=== PATIENT | female | born 1970 | race Caucasian/White ===

== ENCOUNTER 2018-10-25 11:49 | Emergency (ER) | payer OTHER ==
[~2018-10-25] VITALS: Ht 167.6 cm; Wt 90.7 kg
--- OUTSIDE RECORDS SUMMARY | 2018-10-25 11:53 | XMS REPORT | Encounter Summary ---
Author Organization Unknown Address [address] [place] [address] Phone [phone] Reason for Visit Medical Complaint Instructions None recorded. Discussion Note: None recorded. Patient educational handouts: No information available. Plan of Care Reminders Provider Appointments None recorded. Lab None recorded. Referral None recorded. Procedures None recorded. Surgeries None recorded. Imaging None recorded. Medications Name Start Date Bromfed DM 2 mg-30 mg-10 mg/5 mL syrup Take 10 mL every 6 hours by oral route as needed for cough. cephalexin 500 mg capsule TK 1 C PO BID FOR 10 DAYS citalopram 20 mg tablet TK 1 T PO QD methocarbamol 750 mg tablet TK 1 T PO TID PRF SPASMS phentermine 37.5 mg tablet TK 1 T PO QD prednisone 10 mg tablet TK 1 T PO TID tramadol 50 mg tablet TK ONE TO TWO TS PO Q 4 TO 6 H PRN P Zithromax Z-Cuco 250 mg tablet Take 2 pills the first day then 1 pill for the next 4 days. Medications Administered None recorded. Vitals None recorded. Lab Results None recorded. Allergies None recorded. Problems Name Status Onset Date Source Otitis Media Active Encounter Acute Upper Respiratory Infection Active Encounter Acute Bronchitis Active Encounter Procedures Date Name Performed by 11/15/2014 Hysterectomy Information not available Vaccine List None recorded. Social History Smoking Status Never Smoker Past Encounters 01/12/2016 [facility] Jean Baptiste: [address] [place] [address], Ph. History of Present Illness None recorded. Review of Systems Reported By: Patient Physical Exam None recorded.
--- OUTSIDE RECORDS SUMMARY | 2018-10-25 11:53 | XMS REPORT | Encounter Summary ---
Author Organization Unknown Address [address] [place] [address] Phone [phone] Care Team Providers Care Charge Hand Name Role Phone Chemo Fam MD 3 [phone] Reason for Visit Immunization Instructions 1. Immunization Adacel (Tdap Adolesn/Adult)(PF)2Lf-(2.5-5-3-5mcg)-5 Lf/0.5 mL IM susp 2. Counseling 3. Body mass index 30+ - obesity body mass index: care instructions Discussion Note Pt is in NAD; Verbalizes understanding of all instructions with no questions at this time. Plan of Care Patient Instructions Td Booster every 10 years after first Tdap vaccine. Refer to your VIS handout as discussed in clinic today regarding your care after administration. Follow up with your PCP as needed. In case of emergecy call 911 or go to nearest ER. Recommend follow a low sodium/fat/carb diet and exercise 30-45 mins/d 3-4 days a week once symptoms resolve. Reminders Provider Appointments None recorded. Lab None recorded. Referral None recorded. Procedures None recorded. Surgeries None recorded. Imaging None recorded. Medications No Medications Reported Medications Administered None recorded. Vitals Height Weight BMI Blood Pressure 5 ft 6 in 200 lbs 32.3 kg/m2 Lab Results None recorded. Allergies Code Code System Name Reaction Severity Status Onset NKDA Problems Name Status Onset Date Source Body Mass Index 30+ - Obesity Active 09/16/2017 Elevated Blood-pressure Reading without Diagnosis of Hypertension Active 09/16/2017 Immunization Active 12/03/2017 Counseling Active 12/03/2017 Procedures Date Name Performed by 11/15/2014 Hysterectomy Information not available Vaccine List Vaccine Type influenza, unspecified formulation 08/15/2016 Tdap 12/03/20170.5 mL Social History Smoking Status Never Smoker Past Encounters 12/03/2017 Immunization; Counseling; Body Mass Index 30+ - Obesity [facility]: [address] [place] [address], Ph. History of Present Illness Immunization Reported By: Patient HPI: Immunization Request (normal) no symptoms. Immunization eligibility questions No vaccines in last month, No reaction to previous vaccines:, No Known Allergies Review of Systems Basic Reported By: Patient Constitutional: Constitutional: no fever Eyes: Eyes: no eye complaints Vmlo-Cjfi-Kxxpr-Throat: Ears: no ear complaints. Nose: no nose/sinus problems. Mouth/Throat: no sore throat, no bleeding gums, no mouth complaints, no teeth problems Cardiovascular: Cardiovascular: no chest pain, no shortness of breath, no known heart murmur Respiratory: Respiratory: no cough, no wheezing, no shortness of breath Gastrointestinal: Gastrointestinal: no abdominal pain, no vomiting / diarrhea Genitourinary: Genitourinary: no urinary complaints, no discharge Musculoskeletal: Musculoskeletal: no muscle aches, no muscle weakness, no arthralgias/joint pain, no back pain Skin: Skin: no abnormal / changing mole, no jaundice, no rashes Neurologic: Neurologic: no loss of consciousness, no weakness, no numbness, no seizures, no dizziness, no headaches Physical Exam Immunization Reported By: Patient General Appearance: General: well-developed, well-nourished, no acute distress
--- OUTSIDE RECORDS SUMMARY | 2018-10-25 11:53 | XMS REPORT | Continuity of Care Document ---
Author Author [facility] Interface Address Unknown Phone Unavailable Problems Problem Status Onset Date Classification Date Reported Comments Source Body mass index 30+ - obesity 03/12/2018 Diagnosis 03/12/2018 [facility] Elevated blood-pressure reading without diagnosis of hypertension 03/12/2018 Diagnosis 03/12/2018 [facility] Allergic rhinitis due to pollen 03/12/2018 Diagnosis 03/12/2018 [facility] Acute pharyngitis 03/12/2018 Diagnosis 03/12/2018 [facility] Viral upper respiratory tract infection 03/12/2018 Diagnosis 03/12/2018 [facility] Immunization 12/03/2017 Problem 03/12/2018 [facility] Counseling 12/03/2017 Problem 03/12/2018 [facility] Viral Upper Respiratory Tract Infection 10/05/2017 Problem 10/05/2017 [facility] Backache 09/16/2017 Diagnosis 10/05/2017 [facility] Body Mass Index 30+ - Obesity 09/16/2017 Problem 03/12/2018 [facility] Elevated Blood-pressure Reading without Diagnosis of Hypertension 09/16/2017 Problem 03/12/2018 [facility] Acute bronchitis 10/13/2015 Diagnosis 10/13/2015 [facility] Otitis Media Problem 01/12/2016 [facility] Acute Upper Respiratory Infection Problem 01/12/2016 [facility] Acute Bronchitis Problem 01/12/2016 [facility] Medications Medication Details Route Status Patient Instructions Ordering Provider Order Date Source Brompheniramine Maleate 0.4 MG/ML / Dextromethorphan Hydrobromide 2 MG/ML / Pseudoephedrine Hydrochloride 6 MG/ML Oral Solution [Bromfed DM] Bromfed DM 2 mg-30 mg-10 mg/5 mL syrup Take 10 mL every 6 hours by oral route as needed for cough. Active [facility] Azithromycin 250 MG Oral Tablet Zithromax Z-Cuco 250 mg tablet Take 2 pills the first day then 1 pill for the next 4 days. Active [facility] benzonatate 200 MG Oral Capsule benzonatate 200 mg capsule Take 1 capsule 3 times a day by oral route as needed for 10 days. Active [facility] Prednisone 20 MG Oral Tablet prednisone 20 mg tablet Take 3 tablets twice a day by oral route as directed for 5 days. Active [facility] 200 ACTUAT Albuterol 0.09 MG/ACTUAT Metered Dose Inhaler [ProAir] ProAir HFA 90 mcg/actuation aerosol inhaler Inhale 2 puffs every 4-6 hours by inhalation route as needed. Active [facility] Cephalexin 500 MG Oral Capsule cephalexin 500 mg capsule TK 1 C PO BID FOR 10 DAYS Active [facility] Citalopram 20 MG Oral Tablet citalopram 20 mg tablet TK 1 T PO QD Active [facility] Methocarbamol 750 MG Oral Tablet methocarbamol 750 mg tablet TK 1 T PO TID PRF SPASMS Active [facility] Phentermine Hydrochloride 37.5 MG Oral Tablet phentermine 37.5 mg tablet TK 1 T PO QD Active [facility] Prednisone 10 MG Oral Tablet prednisone 10 mg tablet Take 1 tablet twice a day by oral route for 5 days. Active [facility] tramadol hydrochloride 50 MG Oral Tablet tramadol 50 mg tablet TK ONE TO TWO TS PO Q 4 TO 6 H PRN P Active [facility] No Medications Reported No Medications Reported Active [facility] Cyclobenzaprine hydrochloride 10 MG Oral Tablet cyclobenzaprine 10 mg tablet Take 1 tablet 3 times a day by oral route as needed for 7 days. Active [facility] Ibuprofen 800 MG Oral Tablet ibuprofen 800 mg tablet Take 1 tablet 3 times a day by oral route as needed for 7 days. Take with food. Active [facility] Allergies, Adverse Reactions, Alerts Substance Category Reaction Severity Reaction type Status Date Reported Comments Source Immunizations Immunization Date Given Site Status Last Updated Comments Source Tdap 12/03/2017 completed [facility] influenza, unspecified formulation 08/15/2016 completed [facility] Tdap 06/17/2009 completed [facility] Results Order Name Results Value Reference Range Date Interpretation Comments Source RESULT negative 03/12/2018 [facility] SWAB LOCATION Left and Right tonsillar pillars 03/12/2018 [facility] Influenza A negative 03/12/2018 [facility] Influenza B negative 03/12/2018 [facility] Influenza A negative 10/13/2015 [facility] Influenza B negative 10/13/2015 [facility] Vital Signs Vital Sign Value Date Comments Source Diastolic (mm Hg) 90 03/12/2018 [facility] Height 66 03/12/2018 [facility] Systolic (mm Hg) 130 03/12/2018 [facility] Weight 220 03/12/2018 [facility] Height 66 12/03/2017 [facility] Weight 200 12/03/2017 [facility] Diastolic (mm Hg) 80 10/05/2017 [facility] Height 66 10/05/2017 [facility] Systolic (mm Hg) 120 10/05/2017 [facility] Weight 200 10/05/2017 [facility] Diastolic (mm Hg) 80 09/16/2017 [facility] Height 66 09/16/2017 [facility] Systolic (mm Hg) 125 09/16/2017 [facility] Weight 200 09/16/2017 [facility] Diastolic (mm Hg) 86 10/13/2015 [facility] Height 66 10/13/2015 [facility] Systolic (mm Hg) 122 10/13/2015 [facility] Weight 200 10/13/2015 [facility] Encounters Location Location Details Encounter Type Encounter Number Reason For Visit Attending Provider ADM Date DC Date Status Source [place] - [facility] - [id number] IlaDEION BriceP: [address] [facility] [place] [address], Ph. [id number] Ila Mir 10/13/2015 [facility] [place] [facility] - [id number] Manju Clarke, CAGE CASHIER: [address] [facility] [place] [address], Ph. [id number] Ila Mir 01/12/2016 [facility] [place] [facility] - [id number] Shae Briggs, [employer]AGE C[employer]IER-C: [address], [place] [address], Ph. [id number] Shae Briggs 09/16/2017 [facility] [place] [facility] - [id number] JamilP-C: [address] [facility] [place] [address], Ph. [id number] Shae Curranroy 09/16/2017 [facility] [place] - [facility] - [id number] Briggs, CAGE CASHIER-C: [address] [place] [address], Ph. [id number] Shae Curranroy 10/05/2017 [facility] [place] - [facility] - [id number] Angela Monroy, CAGE CASHIER-C: [address] [place] [address], Ph. [id number] Shae Curranroy 12/03/2017 [facility] [place] [facility] - [id number] Kosisomarcelle Alimole, CAGE CASHIER: [address] [place] [address], Ph. [id number] Kosisochi Alimole 03/12/2018 [facility] Procedures Procedure Code Date Perfomer Comments Source Hysterectomy 11/15/2014 [facility]
--- OUTSIDE RECORDS SUMMARY | 2018-10-25 11:53 | XMS REPORT | Encounter Summary ---
Author Organization Unknown Address [address] [place] [address] Phone [phone] Care Team Providers Care Orthopedic Nurse Practitioner Name Role Phone Chemo Fam MD 3 [phone] Reason for Visit Left Medical Complaint Instructions 1. Backache back pain: care instructions cyclobenzaprine 10 mg tablet ibuprofen 800 mg tablet 2. Elevated blood-pressure reading without diagnosis of hypertension 3. Body mass index 30+ - obesity Discussion Note Pt is in NAD; Verbalizes understanding of all instructions with no questions at this time. Plan of Care Patient Instructions Rest, alternate with ice and heat. Recommend take ibuprofen and cyclobenzaprine as directed. Do no operate any machinery or drive while taking these medications. Recommend avoid extreneous exercise, avoid heavy lifting. Activity as tolerated. If worsening of symptoms follow up with PCP. In case of emergency call 911 or go to nearest ER. Recommend follow a low sodium/fat/carb diet and exercise 30-45 mins/d 3-4 days a week once symptoms resolve. Recommend monitor BP at home and document, bring BP log to PCP for review. Recommend follow a low sodium/fat/carb diet and exercise 30-45 mins/d 3-4 days a week once symptoms resolve. Reminders Provider Appointments None recorded. Lab None recorded. Referral None recorded. Procedures None recorded. Surgeries None recorded. Imaging None recorded. Medications Name Start Date cyclobenzaprine 10 mg tablet Take 1 tablet 3 times a day by oral route as needed for 7 days. ibuprofen 800 mg tablet Take 1 tablet 3 times a day by oral route as needed for 7 days. Take with food. methocarbamol 750 mg tablet TK 1 T PO TID PRF SPASMS Medications Administered None recorded. Vitals Height Weight BMI Blood Pressure 5 ft 6 in 200 lbs 32.3 kg/m2 (1) 138/92 mm[Hg] (2) 125/80 mm[Hg] Lab Results None recorded. Allergies Code Code System Name Reaction Severity Status Onset NKDA Problems Name Status Onset Date Source Body Mass Index 30+ - Obesity Active 09/16/2017 Backache Active 09/16/2017 Elevated Blood-pressure Reading without Diagnosis of Hypertension Active 09/16/2017 Procedures Date Name Performed by 11/15/2014 Hysterectomy Information not available Vaccine List Vaccine Type influenza, unspecified formulation 08/15/2016 Tdap 06/17/2009 Social History Smoking Status Never Smoker Past Encounters 09/16/2017 Backache; Elevated Blood-pressure Reading without Diagnosis of Hypertension; Body Mass Index 30+ - Obesity Shae Briggs, [facility]: [address] [place] [address], Ph. History of Present Illness Musculoskeletal Complaint Reported By: Patient HPI: Location: Location:. Quality: sharp, deep, constant. Severity: moderate (5- 7), same, pain level 7/10. Duration: intermittent. Onset/Timing: acute, gradual. Context: unusual activity; after lifting a table. Alleviating factors: NSAIDS. Aggravating factors: lifting, pushing/pulling, computer use, movement/positioning. Associated Symptoms: no fever/chills, no warmth, no redness, no swelling, no drainage, no ecchymosis, no weakness, no tingling, no numbness, no radiation, no catching/locking, no popping/clicking, no buckling, no grinding, no instability, no weight loss, no change in bowel/bladder habits, no muscle aches, no headache Review of Systems:ROS as noted in the HPI Review of Systems Basic Reported By: Patient Physical Exam Adult Basic, Adult Female Complete, Expanded Musculoskeletal Exam 1 Reported By: Patient Constitutional: General Appearance: obese. Level of Distress: NAD. Ambulation: ambulating normally Psychiatric: Mental Status: active and alert. Orientation: to time, to place, to person Lungs: Respiratory effort: no dyspnea, no tachypnea, no use of accessory muscles, no intercostal retractions. Auscultation: breath sounds normal Cardiovascular: Heart Auscultation: RRR, no murmurs Musculoskeletal:: Motor Strength and Tone: normal motor strength, normal tone. Joints, Bones, and Muscles: no bony abnormalities, no contractures, no malalignment, limited ROM, tenderness. Extremities: no cyanosis, no edema, no varicosities, no palpable cord. Cervical Spine Motion: normal, flexion normal, extension normal, lateral flexion right normal, lateral flexion left normal, rotation right normal, rotation left normal. Shoulder Motion Right: normal, forward elevation normal, abduction normal, adduction normal, external rotation normal, internal rotation normal. Shoulder Motion Left: normal, forward elevation normal, abduction normal, adduction normal, external rotation normal, internal rotation normal. Elbow Motion Right: normal, flexion normal, extension normal, supination normal, pronation normal. Elbow Motion Left: normal, flexion normal, extension normal, supination normal, pronation normal. Wrist Motion Right: normal, dorsiflexion normal, palmar flexion normal, radial flexion normal, ulnar flexion normal. Wrist Motion Left: normal, dorsiflexion normal, palmar flexion normal, radial flexion normal, ulnar flexion normal. Finger/Thumb Motion Right: normal, proximal flexion normal, distal flexion normal, proximal extension normal, distal extension normal. Finger/Thumb Motion Left: normal, proximal flexion normal, distal flexion normal, proximal extension normal, distal extension normal Neurologic: Gait and Station: normal gait, normal station. Cranial Nerves: grossly intact. Sensation: grossly intact. Reflexes: DTRs 2+ bilaterally throughout Back: Thoracolumbar Appearance: normal curvature
--- OUTSIDE RECORDS SUMMARY | 2018-10-25 11:53 | XMS REPORT | Encounter Summary ---
Author Organization Unknown Address [address] [place] [address] Phone [phone] Reason for Visit Medical Complaint; body aches, chest congestion, headache, cough x3 to 4 days. Instructions 1. Acute bronchitis rapid flu (A+B) Zithromax Z-Cuco 250 mg tablet Bromfed DM 2 mg-30 mg-10 mg/5 mL syrup bronchitis: care instructions Discussion Note: None recorded. Plan of Care Patient Instructions Please complete antibiotic course even after symptoms resolve.Please f/u with PCP in 1 week or seek care immediatelyif you are short of breath, have trouble breathing, or can't catch breath. Reminders Provider Appointments None recorded. Lab Rapid Flu (A+B) 10/13/2015 [facility] Referral None recorded. Procedures None recorded. Surgeries None recorded. Imaging None recorded. Medications Name Start Date Bromfed DM 2 mg-30 mg-10 mg/5 mL syrup Take 10 mL every 6 hours by oral route as needed for cough. Zithromax Z-Cuco 250 mg tablet Take 2 pills the first day then 1 pill for the next 4 days. Medications Administered None recorded. Vitals Height Weight BMI Blood Pressure 5 ft 6 in 200 lbs 32.3 122/86 Lab Results Date Name Result Description Value Range Status Rapid Flu (A+B) Influenza a negative Influenza B negative Allergies Name Reaction Severity Onset NKDA Problems Name Status Onset Date Source Otitis Media Active Encounter Acute Upper Respiratory Infection Active Encounter Acute Bronchitis Active Encounter Procedures Date Name Performed by 11/15/2014 Hysterectomy Information not available Vaccine List None recorded. Social History Smoking Status Never Smoker Past Encounters 10/13/2015 Acute Bronchitis [facility] Baptiste: [address] [place] [address], Ph. History of Present Illness Clcly-Vacltqejnc-Dvtqolu Reported By: Patient HPI: Location: throat, chest. Quality: productive cough, sore throat, colored phlegm. Duration: 4days. Severity: moderate. Onset/Timing: gradual. Modifying factors: OTC medication Review of Systems Basic Reported By: Patient Constitutional: Constitutional: no fever Eyes: Eyes: no eye complaints Ohrw-Lmly-Jmqzd-Throat: Ears: no ear complaints. Nose: nose/sinus problems. Mouth/Throat: no bleeding gums, no mouth complaints, no teeth problems, sore throat Cardiovascular: Cardiovascular: no chest pain, no shortness of breath, no known heart murmur Respiratory: Respiratory: no wheezing, no shortness of breath, cough Gastrointestinal: Gastrointestinal: no abdominal pain, no vomiting / diarrhea Genitourinary: Genitourinary: no urinary complaints, no discharge Musculoskeletal: Musculoskeletal: no muscle weakness, no arthralgias/joint pain, no back pain, muscle aches Skin: Skin: no abnormal / changing mole, no jaundice, no rashes Neurologic: Neurologic: no loss of consciousness, no weakness, no numbness, no seizures, no dizziness, no headaches Physical Exam Adult Female Complete, Adult Basic Constitutional: General Appearance: healthy-appearing, well-nourished, well-developed. Level of Distress: NAD. Ambulation: ambulating normally Psychiatric: Mental Status: active and alert. Orientation: to time, to place, to person Eyes: Lids and Conjunctivae: non-injected, no discharge, no pallor. Pupils: PERRLA. EOM: EOMI. Sclerae: non-icteric Tth-Tyqy-Eqekb-Throat: Ears: no lesions on external ear, no outer ear tenderness, EACs clear, TMs clear. Hearing: no hearing loss. Nose: no lesions on external nose, nares patent, no septal deviation, nasal passages clear, no sinus tenderness, nasal discharge, post nasal drip. Lips, Teeth, and Gums: no mouth or lip ulcers, no bleeding gums, normal dentition. Oropharynx: moist mucous membranes, no exudates, tonsils not enlarged, erythema Neck: Neck: supple. Lymph Nodes: no cervical LAD, no supraclavicular LAD Lungs: Respiratory effort: no dyspnea, no tachypnea. Percussion: no dullness, flatness, or hyperresonance. Auscultation: rhonchi Cardiovascular: Heart Auscultation: RRR, no murmurs Neurologic: Gait and Station: normal gait Skin: Inspection and palpation: no rash
--- OUTSIDE RECORDS SUMMARY | 2018-10-25 11:53 | XMS REPORT | Encounter Summary ---
Author Organization Unknown Address [address] [place] [address] Phone [phone] Care Team Providers Care Clerk Television Production Name Role Phone Chemo Fam MD 3 [phone] Reason for Visit Medical Complaint Instructions 1. Viral upper respiratory tract infection benzonatate 200 mg capsule ProAir HFA 90 mcg/actuation aerosol inhaler prednisone 20 mg tablet 2. Elevated blood-pressure reading without diagnosis of hypertension 3. Body mass index 30+ - obesity body mass index: care instructions Discussion Note Pt is in NAD; Verbalizes understanding of all instructions with no questions at this time. Plan of Care Patient Instructions Start Benzaontate for cough. Start ProAir Inhalers 2 puffs every 4-6 hrs as needed for shortness of breath/wheezing. Take Steroids as directed and with food to avoid GI discomfort. Take medications as prescribed and follow up with a PCP within 2-3 if symptoms worsen as discussed. In case of emergency call 911 or go to nearest ER. Recommend monitor BP at home and document, bring BP log to PCP for review. Recommend follow a low sodium/fat/carb diet and exercise 30-45 mins/d 3-4 days a week once symptoms resolve. Reminders Provider Appointments None recorded. Lab None recorded. Referral None recorded. Procedures None recorded. Surgeries None recorded. Imaging None recorded. Medications Name Start Date benzonatate 200 mg capsule Take 1 capsule 3 times a day by oral route as needed for 10 days. prednisone 20 mg tablet Take 3 tablets twice a day by oral route as directed for 5 days. ProAir HFA 90 mcg/actuation aerosol inhaler Inhale 2 puffs every 4-6 hours by inhalation route as needed. Medications Administered None recorded. Vitals Height Weight BMI Blood Pressure 5 ft 6 in 200 lbs 32.3 kg/m2 120/80 mm[Hg] Lab Results None recorded. Allergies Code Code System Name Reaction Severity Status Onset NKDA Problems Name Status Onset Date Source Body Mass Index 30+ - Obesity Active 09/16/2017 Elevated Blood-pressure Reading without Diagnosis of Hypertension Active 09/16/2017 Viral Upper Respiratory Tract Infection Active 10/05/2017 Procedures Date Name Performed by 11/15/2014 Hysterectomy Information not available Vaccine List Vaccine Type influenza, unspecified formulation 08/15/2016 Tdap 06/17/2009 Social History Smoking Status Never Smoker Past Encounters 10/05/2017 Viral Upper Respiratory Tract Infection; Elevated Blood-pressure Reading without Diagnosis of Hypertension; Body Mass Index 30+ - Obesity ShaeHINA Kay-C: [address] [place] [address], Ph. 09/16/2017 Backache; Elevated Blood-pressure Reading without Diagnosis of Hypertension; Body Mass Index 30+ - Obesity LEONCIO GarciaC: [address] [place] [address], Ph. History of Present Illness Tbmpast-Xwehv-Syr Reported By: Patient HPI: Quality: symptoms worse during the day. Duration: 1 days. Context: no ill contacts, no tick/insect bites, no recent travel, no new medications. Associated Symptoms: no fever/chills, no headache, no muscle aches, no rash, no lethargy, cough, nasal passage blockage (stuffiness); moderate chest congestion. Modifying Factors nothing gives relief Review of Systems Basic Reported By: Patient Constitutional: Constitutional: no fever Eyes: Eyes: no eye complaints Tdef-Qhhm-Dbjzk-Throat: Ears: no ear complaints. Nose: nose/sinus problems. Mouth/Throat: no sore throat, no bleeding gums, no mouth complaints, no teeth problems Cardiovascular: Cardiovascular: no chest pain, no shortness of breath, no known heart murmur Respiratory: Respiratory: no wheezing, no shortness of breath, cough; moderate chest congestion Gastrointestinal: Gastrointestinal: no abdominal pain, no vomiting / diarrhea Genitourinary: Genitourinary: no urinary complaints, no discharge Musculoskeletal: Musculoskeletal: no muscle aches, no muscle weakness, no arthralgias/joint pain, no back pain Skin: Skin: no abnormal / changing mole, no jaundice, no rashes Neurologic: Neurologic: no loss of consciousness, no weakness, no numbness, no seizures, no dizziness, no headaches Physical Exam Adult Basic, Adult Female Complete Reported By: Patient Constitutional: General Appearance: obese. Level of Distress: NAD. Ambulation: ambulating normally Psychiatric: Mental Status: active and alert. Orientation: to time, to place, to person Jlv-Yxlr-Fnbbm-Throat: Ears: no lesions on external ear, no outer ear tenderness, EACs clear, TMs clear. Hearing: no hearing loss. Nose: no lesions on external nose, nares patent, no septal deviation, nasal passages clear, no sinus tenderness, nasal discharge--rhinorrhea, post nasal drip. Lips, Teeth, and Gums: no mouth or lip ulcers, no bleeding gums, normal dentition. Oropharynx: moist mucous membranes, no erythema, no exudates, tonsils not enlarged Neck: Lymph Nodes: no cervical LAD Lungs: Respiratory effort: no dyspnea, no tachypnea, no use of accessory muscles, no intercostal retractions. Auscultation: breath sounds normal Cardiovascular: Heart Auscultation: RRR, no murmurs Neurologic: Gait and Station: normal gait, normal station
--- OUTSIDE RECORDS SUMMARY | 2018-10-25 11:53 | XMS REPORT ---
Author Author [facility] Address Unknown Phone Unavailable Care Team Providers Care Primary Therapist Name Role Phone Unavailable Unavailable Problems This patient has no known problems. Allergies, Adverse Reactions, Alerts This patient has no known allergies or adverse reactions. Medications This patient has no known medications. Results Test Description Test Time Test Comments Text Results Atomic Results Result Comments SCR MAMM BILATERAL LICO CAD DIGITAL 2018-09-05 13:39:12 - SCR MAMM BILATERAL LICO CAD DIGITALBILATERAL DIGITAL SCREENING MAMMOGRAM 3D/2D WITH CAD: 09/05/2018CLINICAL: Asymptomatic. Digital breast tomosynthesis was performed in addition to routine CC and MLO views. Current mammographic images were evaluated by either a Twenty Jeans M-Vu or a 36Kr ImageChecker CAD (computer aided detection system). Comparison is made to exams dated 07/23/2014 mammogram and mammogram - [facility]-. There are scattered fibroglandular tissues in both breasts. No suspicious mass, architectural distortion, malignant type calcification, or lymph node abnormality detected. Breast architecture is stable compared to prior exams.IMPRESSION: NEGATIVEThere is no mammographic evidence of malignancy. Resume annual screening mammography in one year. Saleem Phillips M.D. qsarah/penrad:09/05/2018 13:39:12 Wood Filler: Tere DE SANTIAGO, [facility]-FWletter sent: BIRADS 1-2 Normal Mammogram BI-RADS: 1 Negative
--- OUTSIDE RECORDS SUMMARY | 2018-10-25 11:53 | XMS REPORT | Encounter Summary ---
Author Organization Unknown Address [address] [place] [id number] Phone [phone] Care Team Providers Care Rice Farmer Name Role Phone Chemo Fam MD 3 [phone] Reason for Visit Medical Complaint Instructions 1. Viral upper respiratory tract infection prednisone 10 mg tablet rapid flu (A+B) viral respiratory infection: care instructions 2. Acute pharyngitis rapid strep group A, throat sore throat: care instructions 3. Allergic rhinitis due to pollen 4. Elevated blood-pressure reading without diagnosis of hypertension elevated blood pressure: care instructions 5. Body mass index 30+ - obesity eating healthy foods: care instructions Discussion Note I provided /reviewed healthwise handout Plan of Care Patient Instructions Take prescription as prescribed and f/u with PCP if symptoms persist or worsens within 5-7 days. Reminders Provider Appointments None recorded. Lab Rapid Flu (A+B) 03/12/2018 [facility] Rapid Strep Group a, Throat 03/12/2018 [facility] Referral None recorded. Procedures None recorded. Surgeries None recorded. Imaging None recorded. Medications Name Start Date prednisone 10 mg tablet Take 1 tablet twice a day by oral route for 5 days. Medications Administered None recorded. Vitals Height Weight BMI Blood Pressure 5 ft 6 in 220 lbs 35.5 kg/m2 (1) 130/90 mm[Hg] (2) 130/90 mm[Hg] Lab Results Date Name Specimen Result Interpretation Description Value Range Status Address Rapid Strep Group a, Throat Result negative [facility]: [address] [place] [address] Swab Location Left and Right tonsillar pillars [facility]: [address] [place] [address] Rapid Flu (A+B) Influenza a negative [facility]: [address] [place] [address] Influenza B negative [facility]: [address] [place] [address] Allergies Code Code System Name Reaction Severity [...] History Smoking Status Never Smoker Past Encounters 03/12/2018 Viral Upper Respiratory Tract Infection; Acute Pharyngitis; Allergic Rhinitis Due to Pollen; Elevated Blood-pressure Reading without Diagnosis of Hypertension; Body Mass Index 30+ - Obesity Ankur Watkins, [employer]ORE [employer]GER: [address] [place] [address], Ph. History of Present Illness Ahemm-Ououercrtw-Zxegjvs Reported By: Patient HPI: Location: head/sinuses. Quality: colored phlegm, nasal/sinus congestion, hacking cough. Duration: 2days. Severity: mild. Onset/Timing: sudden. Context: no foreign travel, non-smoker, sick contact, allergies. Modifying factors: OTC medication. Associated Symptoms: no sputum production, no shortness of breath, no wheezing, no change in number of pillows needed to sleep at night, no sweats, no significant weight gain, no significant weight loss, no diarrhea, no rash, no nausea, no fever, no muscle aches, no headache, morning cough, vomiting; Body aches Review of Systems Basic Reported By: Patient Physical Exam Adult Basic, Adult Female Complete Reported By: Patient Constitutional: General Appearance: healthy-appearing, well-nourished, well-developed. Level of Distress: NAD. Ambulation: ambulating normally Psychiatric: Mental Status: active and alert. Orientation: to time, to place, to person Kzj-Jjqy-Hwoeo-Throat: Ears: no lesions on external ear, no outer ear tenderness, EACs clear, TMs clear. Hearing: no hearing loss. Nose: no lesions on external nose, nares patent, no septal deviation, nasal passages clear, sinus tenderness, post nasal drip. Lips, Teeth, and Gums: no mouth or lip ulcers, no bleeding gums, normal dentition. Oropharynx: moist mucous membranes, no erythema, no exudates, tonsils not enlarged Lungs: Respiratory effort: no dyspnea, no tachypnea, no use of accessory muscles, no intercostal retractions. Auscultation: breath sounds normal Cardiovascular: Heart Auscultation: RRR, no murmurs
[2018-10-25] MEDS ORDERED: SODIUM CHLORIDE 0.9% 1000ML 1,000 ML ONE (12:07)
[2018-10-25] MEDS ORDERED: SODIUM CHLORIDE 0.9% 1000ML 1,000 ML IV ONE (12:15)
[2018-10-25] MEDS ORDERED: KETOROLAC TROMETHAMINE 30 MG/ML VIAL IV ONE (13:00)
[2018-10-25] MEDS ORDERED: DEXAMETHASONE SOD PHOS 10 MG/1 ML VIAL IV ONE (13:00)
[2018-10-25] MEDS ORDERED: METOCLOPRAMIDE HCL 10 MG/2ML VIAL IV ONE (13:00)
[2018-10-25] MEDS ORDERED: DIPHENHYDRAMINE HCL INJ 50 MG/ML VIAL IV ONE (13:00)
[2018-10-25] MEDS ORDERED: ONDANSETRON HCL INJ 2MG/ML 2ML 2 MG/ML VIAL IV ONE (13:00)
--- NOTE | 2018-10-25 13:06 | NUR ---
PT STATES SHE IS NO LONGER NAUSEOUS AND PAIN HAS DECREASED FROM 11/24 TO 4; PT RESTING COMFORTABLY IN BED AT THIS TIME DENIES ANY DISTRESS AT THIS TIME
[2018-10-25] MEDS ORDERED: BUTALB-ACETAMI1 EACH PO (13:14)
[2018-10-25] MEDS ORDERED: ZOFRAN4 MG SL (13:14)
[2018-10-25 13:21] VITALS: BP 153/89
== END 2018-10-25 13:31 | disposition home or self-care (01) ==
LOC: ER 11:49
DX: G44.021 Chronic cluster headache, intractable (principal); F32.9 Major depressive disorder, single episode, unspecified; F90.9 Attention-deficit hyperactivity disorder, unspecified type
CPT/HCPCS: 99283; J1100; J1200; J1885; J2765; J7030

== ENCOUNTER 2020-12-12 20:02 | Emergency (ER) | payer BC, OTHER ==
[~2020-12-12] VITALS: Ht 167.6 cm; Wt 90.7 kg
[~2020-12-12 20:02] MED LIST: BUTALB-ACETAMI1 EACH PO; ZOFRAN4 MG SL
[2020-12-12] MEDS ORDERED: HYDROCODONE/APAP 10MG-325MG TAB PO ONE (21:00)
[2020-12-12] MEDS ORDERED: TYLENOL # 31 EA PO (23:14)
[2020-12-12] MEDS ORDERED: NAPROXEN250 MG PO (23:14)
[2020-12-12] MEDS ORDERED: TRAMADOL HCL 50 MG TAB PO ONE (23:30)
[2020-12-12 23:33] VITALS: BP 132/80
== END 2020-12-12 23:35 | disposition home or self-care (01) ==
LOC: ER 20:58
DX: S00.83XA Contusion of other part of head, initial encounter (principal); S70.02XA Contusion of left hip, initial encounter; M25.552 Pain in left hip; W10.8XXA Fall (on) (from) other stairs and steps, initial encounter; Y93.01 Activity, walking, marching and hiking; Y92.008 Other place in unspecified non-institutional (private) residence as the place of occurrence of the external cause; F41.9 Anxiety disorder, unspecified
CPT/HCPCS: 70450; 72192; 99284

== ENCOUNTER 2024-08-04 23:57 | Emergency (ER) | payer BC, OTHER ==
[~2024-08-04] VITALS: Ht 170.2 cm; Wt 104.3 kg
[~2024-08-04 23:57] MED LIST changes: +NAPROXEN250 MG PO; +TYLENOL # 31 EA PO
[2024-08-04] MEDS ORDERED: DIPHENHYDRAMINE HCL INJ 50 MG/ML VIAL IV STA (23:59)
[2024-08-05] MEDS: METOCLOPRAMIDE HCL 10 MG/2ML VIAL IV STA (00:22)
[2024-08-05] MEDS: SODIUM CHLORIDE 0.9% 1000ML 1,000 ML IV STA (00:22)
[2024-08-05] MEDS: METHYLPREDNISOLONE SOD SUCC 125 MG/2ML VIAL IV STA (00:23)
[2024-08-05] MEDS: KETOROLAC TROMETHAMINE 30 MG/ML VIAL IV STA (00:23)
[2024-08-05 00:35] LABS: BASOPHILS # (AUTO) 0.1 (0.0-0.1); BASOPHILS % 0.8 % (0.0-1.0); EOSINOPHILS # (AUTO) 0.3 (0.0-0.4); HEMATOCRIT 40.5 % (34.2-44.1); HEMOGLOBIN 13.5 g/dL (12.0-16.0); LYMPHOCYTES % 30.5 % (18.0-39.1); MEAN CORPUSCULAR HEMOGLOBIN 31.7 pg (28-32); MEAN CORPUSCULAR HGB CONC 33.3 g/dL (31-35); MEAN CORPUSCULAR VOLUME 95.1 fL (81-99); MONOCYTES # (AUTO) 1.1 (0.2-0.8); MONOCYTES % 10.6 % (4.4-11.3); NEUTROPHILS # (AUTO) 5.4 (2.1-6.9); NEUTROPHILS % 54.7 % (38.7-80.0); PLATELET COUNT 351 x10e3/uL (140-360); RED BLOOD COUNT 4.26 x10e6/uL (3.6-5.1); RED CELL DISTRIBUTION WIDTH 13.2 % (11.7-14.4)
[2024-08-05 00:51] LABS: ALBUMIN 3.9 g/dL (3.5-5.0); ALBUMIN/GLOBULIN RATIO 0.9 (0.8-2.0); ANION GAP 15.4 mmol/L (8-16); BILIRUBIN,TOTAL 0.4 mg/dL (0.2-1.2); CALCIUM 9.1 mg/dL (8.4-10.2); CREATININE, SERUM 0.91 mg/dL (0.57-1.11); STREPTOCOCCUS GRP A ANTIGEN NEGATIVE (NEGATIVE); TOTAL PROTEIN 8.2 g/dL (6.5-8.1)
[2024-08-05 01:07] LABS: POTASSIUM 3.4 mmol/L (3.5-5.1)
[2024-08-05 01:11] LABS: CORONAVIRUS COVID-19 AG NEGATIVE (NEGATIVE); INFLUENZA A AG NEGATIVE (NEGATIVE); INFLUENZA B AG NEGATIVE (NEGATIVE)
[2024-08-05 01:47] VITALS: PULSE 87; RESP 18; TEMP 98.6; O2SAT 95
== END 2024-08-05 01:40 | disposition home or self-care (01) ==
LOC: ER 08-05 00:01
DX: R51.9 Headache, unspecified (principal); F41.9 Anxiety disorder, unspecified; Z11.52 Encounter for screening for COVID-19
CPT/HCPCS: 36415; 70450; 80053; 83518; 85025; 87070; 87428; 99284; J1200; J1885; J2765; J2919; J7030